=== PATIENT | male | born 1955 | race African-American/Black ===

== ENCOUNTER 2024-07-24 11:11 | Emergency (ER) | payer MEDICARE, MEDICAID ==
[~2024-07-24] VITALS: Ht 160 cm; Wt 93.0 kg
[2024-07-24 11:13] VITALS: TEMP 98.4; O2SAT 98
[2024-07-24] MEDS ORDERED: TOPUD PO (13:00)
[2024-07-24 13:35] VITALS: BP 128/80; PULSE 82; RESP 14; O2SAT 99
== END 2024-07-24 13:55 | disposition home or self-care (01) ==
LOC: ER 11:11
DX: R10.9 Unspecified abdominal pain (principal); E78.00 Pure hypercholesterolemia, unspecified; I10 Essential (primary) hypertension; W01.0XXA Fall on same level from slipping, tripping and stumbling without subsequent striking against object, initial encounter; Y93.89 Activity, other specified; Y92.89 Other specified places as the place of occurrence of the external cause; Y99.8 Other external cause status
CPT/HCPCS: 71101; 73502; 99284